=== PATIENT | female | born 1960 | race Caucasian/White ===

== ENCOUNTER 2018-09-02 17:22 | Inpatient (IN) | payer MEDICARE, OTHER ==
[~2018-09-02] VITALS: Ht 157.5 cm; Wt 76.7 kg
--- OUTSIDE RECORDS SUMMARY | ~2018-09-02 | XMS | Clinical Summary ---
Demographics + + + | Address | [address] | | | [place] [address] | + + + | Home Phone | | + + + | Preferred Language | Unknown | + + + | Marital Status | Single | + + + | Sabianist Affiliation | Unknown | + + + | Race | Unknown | + + + | Ethnic Group | Unknown | + + + Author + + + | Author | [facility] | | | and [place] | + + + | Organization | [facility] | | | and [place] | + + + | Address | Unknown | + + + | Phone | Unavailable | + + + Support + + +---------+ + | Name | Relationship | Address | Phone | + + +---------+ + | Anali Lane | ECON | Unknown | | + + +---------+ + | Patricio Foster | ECON | Unknown | | + + +---------+ + Care Team Providers + +------+ + | Care Greenhouse Specialist Name | Role | Phone | + +------+ + | Marcelo Francisco MD | PP | Unavailable | + +------+ + Allergies + + + + + + | Active Allergy | Reactions | Severity | Noted | Comments | | | | | Date | | + + + + + + | Hydrocodone | Itching | | 09/14/19 | | | | | | 15 | | + + + + + + Current Medications + + +-------+---------+------+------+-------+ | Prescription | Sig. | Disp. | Refills | Star | End | Statu | | | | | | t | Date | s | | | | | | Date | | | + + +-------+---------+------+------+-------+ | esomeprazole | Take 40 mg by mouth | | | | | Activ | | (NEXIUM) 40 mg | every morning | | | | | e | | capsule | (before breakfast). | | | | | | + + +-------+---------+------+------+-------+ | pravastatin | Take 40 mg by mouth | | | | | Activ | | (PRAVACHOL) 40 MG | nightly. | | | | | e | | tablet | | | | | | | + + +-------+---------+------+------+-------+ | rOPINIRole | Take 1 mg by mouth 4 | | | | | Activ | | (REQUIP) 1 mg tablet | times daily. | | | | | e | + + +-------+---------+------+------+-------+ | hydrOXYzine | Take 25 mg by mouth | | | | | Activ | | hydrochloride | 2 times daily. | | | | | e | | (ATARAX) 25 mg | | | | | | | | tablet | | | | | | | + + +-------+---------+------+------+-------+ | gabapentin | Take 300 mg by mouth | | | | | Activ | | (NEURONTIN) 300 mg | nightly. | | | | | e | | capsule | | | | | | | + + +-------+---------+------+------+-------+ | DULoxetine | Take 60 mg by mouth | | | | | Activ | | (CYMBALTA) 60 MG | Daily. | | | | | e | | capsule | | | | | | | + + +-------+---------+------+------+-------+ | ALPRAZolam (XANAX) | Take 1 mg by mouth 4 | | | | | Activ | | 1 MG tablet | times daily. | | | | | e | + + +-------+---------+------+------+-------+ | ciprofloxacin | Take 500 mg by mouth | | | | | Activ | | (CIPRO) 500 mg | 2 times daily. | | | | | e | | tablet | | | | | | | + + +-------+---------+------+------+-------+ | oxyCODONE 10 MG | Take 10 mg by mouth | | | | | Activ | | TABS | 2 times daily. | | | | | e | + + +-------+---------+------+------+-------+ Active Problems Not on file Social History + +-------+ +--------+------+ | Tobacco Use | Types | Packs/Day | Years | Date | | | | | Used | | + +-------+ +--------+------+ | Never Smoker | | | | | + +-------+ +--------+------+ + +---+---+---+ | Smokeless Tobacco: | | | | | Never Used | | | | + +---+---+---+ + + +---------+ + | Alcohol Use | Drinks/We | oz/Week | Comments | | | ek | | | + + +---------+ + | No | | | | + + +---------+ + + + + | Sex Assigned at | Date Recorded | | | | + + + | Not on file | | + + + Last Filed Vital Signs + + + + | Vital Sign | Reading | Time Taken | + + + + | Blood Pressure | 125/78 | 09/13/20141257 PDT | + + + + | Pulse | 100 | 09/13/20141257 PDT | + + + + | Temperature | 35.8 C (96.5 F) | 09/13/20141257 PDT | + + + + | Respiratory Rate | 16 | 09/13/20141257 PDT | + + + + | Oxygen Saturation | 99% | 09/13/20141257 PDT | + + + + | Inhaled Oxygen | - | - | | Concentration | | | + + + + | Weight | 76.7 kg (169 lb) | 09/13/20141257 PDT | + + + + | Height | 157.5 cm (5' 2.01") | 09/13/20141257 PDT | + + + + | Body Mass Index | 30.9 | 09/13/20141257 PDT | + + + + Plan of Treatment + + + + + | Health Maintenance | Due Date | Last Done | Comments | + + + + + | Vaccine: | | | | | Dtap/Tdap/Td (1 - | 1 | | | | Tdap) | | | | + + + + + | Cervical Cancer | | | | | Screening (Pap) | 2 | | | + + + + + | Vaccine: Zoster (1 | | | | | of 2) | 2 | | | + + + + + | Vaccine: Influenza | | | | | (Season Ended) | 9 | | | + + + + + Results Not on filefrom Last 3 Months Insurance + +--------+ +--------+ +---------+ | Payer | Benefi | Subscriber | Type | Phone | Address | | | t Plan | ID | | | | | | / | | | | | | | Group | | | | | + +--------+ +--------+ +---------+ | MEDICARE | MEDICA | [id number] | Medica | [phone] | | | RE | | re | [phone] | | | | PART A | | | | | | | AND B | | | | | + +--------+ +--------+ +---------+ | [place] | MEDICA | [id number] | Medica | [phone] | | | ID | | id | [phone] | | | | [place] | | | | | + +--------+ +--------+ +---------+ + +--------+ +--------+ + + | Guarantor Name | Accoun | Relation to | Date | Phone | Billing Address | | | t Type | Patient | of | | | | | | | | | | + +--------+ +--------+ + + | MARTHA COYNE | Person | Self | [birth year] Home: | [address] | | | [place] | | 1960 | [phone] | [place] | | | latasha | | | [phone] | [phone] | + +--------+ +--------+ + +
--- OUTSIDE RECORDS SUMMARY | ~2018-09-02 | XMS | Clinical Summary ---
Demographics + + + | Address | [address] | | | [place] [address] | + + + | Home Phone | | + + + | Preferred Language | Unknown | + + + | Marital Status | Single | + + + | Worship Affiliation | Unknown | + + + | Race | Unknown | + + + | Ethnic Group | Unknown | + + + Author + + + | Author | [facility] | | | and [place] | + + + | Organization | [facility] | | | and [place] | [...] Team Providers + +------+ + | Care Pediatric Cardiologist Name | Role | Phone | + [...] +--------+ +---------+ | MEDICARE | MEDICA | [id number] | Medica | [phone] | | | | RE | | re | [phone] | | | | PART A | | | | | | | AND B | | | | | + +--------+ +--------+ +---------+ | [place] | MEDICA | [id number] | Med[place] | [phone] | | [...] | Self | [birth year] | Home: | [address] | | | [place] | | 1960 | [phone] | [place] | | | latasha | | | [phone] | [phone] | + +--------+ +--------+ + +
--- OUTSIDE RECORDS SUMMARY | ~2018-09-02 | XMS | Clinical Summary ---
Demographics + + + | Address | [address] | | | [place] [address] | + + + | Home Phone | | + + + | Preferred Language | Unknown | + + + | Marital Status | Single | + + + | Baptist Affiliation | Unknown | + + + | Race | Unknown | + + + | Ethnic Group | Unknown | + + + Author + + + | Author | [facility] | | | and [place] | + + + | Organization | [facility] | | | and [place] [...] Team Providers + +------+ + | Care City Route Driver Name | Role | Phone | + [...] +--------+ +---------+ | MEDICARE | MEDICA | [id number] | Medica | [phone] | | | | RE | | re | [phone] | | | | PART A | | | | | | | AND B | | | | | + +--------+ +--------+ +---------+ | [place] | MEDICA | [id number] | [place] | [phone] | | [...] | Self | [birth year] | Home: | [address] | | | [address] | | 1960 | [phone] | [place] | | | [place] | | | [phone] | + +--------+ +--------+ + +
--- OUTSIDE RECORDS SUMMARY | ~2018-09-02 | XMS | Clinical Summary ---
Demographics + + + | Address | [address] | | | [place] [address] | + + + | Home Phone | | + + + | Preferred Language | Unknown | + + + | Marital Status | Single | + + + | Restorationist Affiliation | Unknown | + + + | Race | Unknown | + + + | Ethnic Group | Unknown | + + + Author + + + | Author | [facility] | | | and [place] | + + + | Organization | [facility] | | | and [place] [...] Team Providers + +------+ + | Care Box Toe Maker Name | Role | Phone | + [...] | + + + + + + Medications + + + +---------+------+------+-------+ | Medication | Sig | Dispensed | Refills | Star | End | Statu | | | | | | t | Date | s | | | | | | Date | | | + + + +---------+------+------+-------+ | esomeprazole | Take 40 mg by mouth | | 0 | | | Activ | | (NEXIUM) 40 mg | every morning | | | | | e | | capsule | (before breakfast). | | | | | | + + + +---------+------+------+-------+ | pravastatin | Take 40 mg by mouth | | 0 | | | Activ | | (PRAVACHOL) 40 MG | nightly. | | | | | e | | tablet | | | | | | | + + + +---------+------+------+-------+ | rOPINIRole | Take 1 mg by mouth 4 | | 0 | | | Activ | | (REQUIP) 1 mg tablet | times daily. | | | | | e | + + + +---------+------+------+-------+ | hydrOXYzine | Take 25 mg by mouth | | 0 | | | Activ | | hydrochloride | 2 times daily. | | | | | e | | (ATARAX) 25 mg | | | | | | | | tablet | | | | | | | + + + +---------+------+------+-------+ | gabapentin | Take 300 mg by mouth | | 0 | | | Activ | | (NEURONTIN) 300 mg | nightly. | | | | | e | | capsule | | | | | | | + + + +---------+------+------+-------+ | DULoxetine | Take 60 mg by mouth | | 0 | | | Activ | | (CYMBALTA) 60 MG | Daily. | | | | | e | | capsule | | | | | | | + + + +---------+------+------+-------+ | ALPRAZolam (XANAX) | Take 1 mg by mouth 4 | | 0 | | | Activ | | 1 MG tablet | times daily. | | | | | e | + + + +---------+------+------+-------+ | ciprofloxacin | Take 500 mg by mouth | | 0 | | | Activ | | (CIPRO) 500 mg | 2 times daily. | | | | | e | | tablet | | | | | | | + + + +---------+------+------+-------+ | oxyCODONE 10 MG | Take 10 mg by mouth | | 0 | | | Activ | | TABS | 2 times daily. | | | | | e | + + + +---------+------+------+-------+ Active Problems Not on file Social History [...] on file | | + + + + + + + | Job Start Date | Occupation | Industry | + + + + | Not on file | Not on file | Not on file | + + + + + + + + | Travel History | Travel Start | Travel End | + + + + + + | No recent travel history available. | + + Last Filed Vital Signs + [...] Last 3 Months Insurance + +--------+ +--------+ +---------+--------+ | Payer | Benefi | Subscriber | Effect | Phone | Address | Type | | | t Plan | ID | carly | | | | | | / | | Dates | | | | | | Group | | | | | | + +--------+ +--------+ +---------+--------+ | MEDICARE | MEDICA | [id number] | 07/29/19 | [phone] | | Medica | | | RE | | 09-Pre | 5 | | re | | | PART A | | sent | | | | | | AND B | | | | | | + +--------+ +--------+ +---------+--------+ | [place] | MEDICA | [id number] | | [phone] | | [place] | | | ID | | [phone]-Pr | 2 | | id | | | [place] | | esent | | | | + +--------+ +--------+ +---------+--------+ + +--------+ +--------+ + + | Guarantor Name | Accoun | Relation to | Date | Phone | Billing Address | | | t Type | Patient | of | | | | | | | | | | + +--------+ +--------+ + + | DorethaKeyonai May | Person | Self | [birth year] | [address] | | | [place] | | 1960 | [phone] | [place] | | | [place]asha | | | [phone] (Home) | [phone] | + +--------+ +--------+ + + Advance Directives Patient has advance care planning documents on file. For more information, please contact:[facility] [place] [address]
[~2018-09-02 17:22] MED LIST: ACYCLOVIR400 MG PO; ALBUTEROL2.5 MG/3 M INH; AUGMENTIN 875-1 EACH PO; CIPRO500 MG PO; CIPROFLOXACIN500 MG PO; CRUTCH1 EACH; CYMBALTA30 MG PO; GABAPENTIN100 MG PO; GABAPENTIN300 MG PO; GUAIFENESIN-CO118 ML PO; HYDROCODON-ACE1 EA14 PO; HYDROXYZINE HCL25 MG PO; IPRATROPIU0.2 MG/1 M INH; LEVAQUIN500 MG PO; LEXAPRO10 MG PO; LINZESS145 MCG PO; LINZESS290 MCG PO; METHOCARBAMOL500 MG PO; METRONIDAZOLE500 MG PO; NEXIUM20 MG PO; NEXIUM40 MG PO; NORCO 7.5-3251 EACH PO; OXYCODONE HCL10 MG PO; OXYCODONE HCL5 MG PO; OXYCODONE-ACET1 EAC3 PO; PERCOCET 10-321 EACH PO; PERCOCET 5-3251 EACH PO; PERCOCET 7.5-31 EACH PO; PRAVACHOL40 MG PO; PREDNISONE10 MG PO; PREMARIN0.3 MG PO; PROAIR HFA8.5 GM INH; ROPINIROLE HCL1 MG PO; SULFAMETHOXAZO1 EAC1 PO; SYMBICORT 16010.2 GM INH; TYLENOL EXTRA500 MG PO; XANAX1 MG PO; XOPENEX1.25 MG/3 INH
--- OUTSIDE RECORDS SUMMARY | 2018-09-02 17:24 | XMS ---
PreManage Notification: MELL SIDHU Security Finisher Screwdown Events No recent Security Events currently on file CRITERIA MET - DELVINP CARE PROVIDERS Cristino Barrera Primary Care Current PHONE: Unknown mai Case or Grain Mill Worker Current PHONE: Unknown Gregorio [place] Artem Current Orthopedic Surgery \T\ Fracture Clinic PHONE: Unknown Shabana has no Care Guidelines for this patient. E.D. VISIT COUNT (12 MO.) 1 YUDELKA [facility] TOTAL 1 NOTE: Visits indicate total known visits. ED/UCC VISIT TRACKING (12 MO.) 09/02/2018 17:22 [facility] [place] TYPE: Emergency COMPLAINT: - COUGH INPATIENT VISIT TRACKING (12 MO.) No inpatient visits to display in this time frame [email or web address]
--- NOTE | 2018-09-02 20:19 | NUR ---
PT ARRIVED VIA STRETCHER FROM ED ON 3LNC. SHE DENIES PAIN AND SOB AT THIS TIME. VS TAKEN AND PT IS ORIENTED TO THE ROOM.
--- NOTE | 2018-09-02 22:10 | NUR ---
IN ROOM ADMINISTERING MEDICATIONS AND ASSESSING PT. PT FINISHED SANDWICH BOX. SHE DENIES PAIN AND SOB. ENCOURAGED PT TO COUGH AND DEEP BREATH. SHE REPORT CLEAR SPUTUM. SHE DENIES FURTHER NEEDS AT THIS TIME. CPOX IS IN PLACE. CALL LIGHT IS WITHIN REACH.
--- NOTE | 2018-09-02 23:05 | NUR ---
WENT INTO PT'S ROOM AND CLEANED UP THE FLOOR WITH RED WIPES. SHE HAD ACCIDENTLY URINATED ON THE FLOOR. NEW GOWN GIVEN AND WIPES FOR CLEANING HER BODY. ATTENDS GIVEN ALSO. BEDSIDE TABLE AND CALL LIGHT IN REACH. PT NEEDS NOTHING MORE AT THIS TIME.
--- NOTE | 2018-09-02 23:33 | NUR ---
PT IS AWAKE IN BED, SHE DENIES NEEDS AT THIS TIME. CALL LIGHT IS WITHIN REACH.
--- NOTE | 2018-09-03 00:47 | NUR ---
PT IS AWAKE IN BED. SHE DENIES NEEDS AT THIS TIME. CALL LIGHT IS WITHIN REACH. SHE REMOVED HER 02 AND CPOX WAS 90%. PUT O2 BACK ON AT 2 LNC WHILE SLEEPING.
--- NOTE | 2018-09-03 01:22 | NUR ---
PT IS RESTING WITH EYES CLOSED, RR IS EVEN AND NONLABORED ON 2LNC AND CPOX. CALL LIGHT IS CLOSE.
--- NOTE | 2018-09-03 01:32 | NUR ---
VITALS AND I&OS DONE AND CHARTED. BEDSIDE TABLE AND CALL LIGHT IN REACH. PT NEEDS NOTHING AT THIS WHEN I ASKED HER.
--- NOTE | 2018-09-03 02:45 | NUR ---
PT IS RESTING WITH EYES CLOSED, RR IS EVEN AND NONLABORED. CALL LIGHT IS WITHIN REACH.
--- NOTE | 2018-09-03 03:48 | NUR ---
PT IS RESTING WITH EYES CLOSED, RESPIRATIONS ARE EVEN AND NONLABORED ON NC AND AT 93% ON CPOX. CALL LIGHT IS CLOSE.
--- NOTE | 2018-09-03 04:31 | NUR ---
REPLACED SENSOR FOR CPOX. PT IS HAVING A DIFFICULT TIME GETTIG COMFORTABLE TO SLEEP WELL. ADMINISTERED ZANAFLEX. SHE FLUCTUATES BETWEEN 93-96 % ON 3LNC. PT DENIES NEEDS AT THIS TIME. CALL LIGHT IS CLOSE. IV IS INFUSING FINE.
--- NOTE | 2018-09-03 06:15 | NUR ---
WOKE PT FOR VS AND I&O. SHE DENIES NEEDS AT THIS TIME. TURNED O2 DOWN TO 2 LNC AND SHE IS MAINTAINING IN THE 90'S. CALL LIGHT IS CLOSE.
--- NOTE | 2018-09-03 07:36 | NUR ---
PT SITTING UP IN BED, ALERT AND ORIENTED X3. PT DENIES SOB AND CHEST PAIN. PT IS ON 2L OXYGEN. PT DENIES PAIN AT THIS TIME. PERSONAL SUPPLIES AND CALL LIGHT WITHIN REACH. NO NEEDS AT THIS TIME.
[2018-09-03] MEDS ORDERED: GABAPENTIN300 MG PO (17:08)
[2018-09-03] MEDS ORDERED: TIZANIDINE HCL2 MG PO (17:10)
[2018-09-03] MEDS ORDERED: IBUPROFEN800 MG PO (17:12)
[2018-09-03] MEDS ORDERED: DULOXETINE HCL60 MG PO (17:43)
[2018-09-03] MEDS ORDERED: ANAFRANIL25 MG PO (17:44)
[2018-09-03] MEDS ORDERED: DULOXETINE HCL30 MG PO (17:44)
[2018-09-03] MEDS ORDERED: ZIPRASIDONE HCL60 MG PO (17:45)
--- NOTE | 2018-09-03 17:55 | NUR ---
Medications reconciled using pharmacy records, chart notes and patient interview. Discrepancies discovered, will message Dr Dominguez
--- NOTE | 2018-09-03 19:05 | NUR ---
ROUNDED CHARGE. PATIENT IS RESTING IN BED. PATIENT DENIES ANY COMMENTS, QUESTIONS OR CONCERNS. NO NEEDS NOTED. CALL LIGHT IN REACH.
--- NOTE | 2018-09-03 19:38 | NUR ---
SHIFT REPORT RECEIVED FROM PATRICIA DANIELLE AT BEDSIDE. PT AWAKE AND RESTING IN BED, RR WNL. PT VISITNG WITH . PT DENIES NEEDS AT THIS TIME. CALL LIGHT IN REACH. 1900 IV ABX INFUSING.
--- NOTE | 2018-09-03 20:13 | NUR ---
ASSESSMENT COMPLETE, SCHEDULED MEDICATIOSN GIVEN (SEE EMAR). PT DENIES PAIN, SOB, OR CHEST PAIN. IV SITE PATENT, BLOOD RETURN NOTED. RT IN ROOM FOR BREATHING TREATMENT. CPOX IN PLACE, O2 SAT AND HR WNL. 3LNC NOTED. PT DENIES FURTHER NEEDS, CALL LIGHT IN REACH. FRESH WATER AT BEDSIDE.
--- NOTE | 2018-09-03 21:10 | NUR ---
SCHEDULED IV VANCO INFUSING, SITE WNL. BLOOD RETURN NOTED. PT DENIES NEEDS, CALL LIGHT IN REACH. 3LNC NOTED.
--- NOTE | 2018-09-03 22:30 | NUR ---
DR HERNANDES NOTIFIED THAT PT'S SCHEDULED ANAFRANIL 25 MG PO IS NOT AVAILABLE IN HOUSE. NO NEW ORDERS, OKAY FOR PT'S FAMILY TO BRING IN MEDICATION FROM HOME AND CAN BE RESUMED TOMORROW NIGHT PER DR HERNANDES.
--- NOTE | 2018-09-04 00:36 | NUR ---
PT RESTING IN BED, EYES CLOSED, RR WNL. NO DISTRESS NOTED. 3LNC IN PLACE, CPOX NOTED. O2 SAT 96%, HR 74. IV FLUIDS INFUSING, SITE WNL. CALL LIGHT IN REACH.
--- NOTE | 2018-09-04 04:49 | NUR ---
ASSESSMENT COMPLETE. NO NEW CONCERNS. PT A/O, INCONTINENT DUE TO SLEEPING DEEPLY. BED CHANGE COMPLETE. NEW ATTENDS IN PLACE. 675 UO ALSO NOTED. PT DENIES PAIN, CPOX IN PLACE WITH 2LNC IN PLACE. LUNG SOUNDS COURSE WITH WHEZZES SCATTERED, PT DENIES SOB. PT NOW IN BED, DENIED FURTHER NEEDS. VERY COMPLIANT AND PLEASANT AT THIS TIME. CALL LIGHT IN REACH. ROOM TIDIED.
--- NOTE | 2018-09-04 05:00 | NUR ---
VITALS AND I&OS DONE AND CHARTED. SODA GIVEN PER REQUEST OF PT. BEDSIDE TABLE AND CALL LIGHT IN REACH. PT NEEDS NOTHING MORE AT THIS TIME.
--- NOTE | 2018-09-04 05:10 | NUR ---
PT SLEPT FOR MOST OF THE NIGHT. 2LNC IN PLACE, WITH CPOX. VSS. PT A/O, DENIED PAIN ALL SHIFT. SBA WITH AMBULATION, FOLLOWS COMMANDS APPROPERIATELY. LR AT 50 MLS/HR, IV SITE WNL. SCHEDULED IV ABX. REGULAR DIET, TOLERATING WELL, NO NAUSEA. PT VOIDING QS.
--- NOTE | 2018-09-04 07:05 | NUR ---
BEDSIDE REPORT.. PT RESTING IN BED EYES CLOSED RR 20BPM DISTRESS NOTED. 98% OXYGEN SATURATION ON 2L N.C.
--- NOTE | 2018-09-04 08:17 | NUR ---
PATIENT SITTING UP IN BED, REFUSED TO GET INTO CHAIR AT THIS TIME. CALL LIGHT IN REACH. NO FURTHER NEEDS AT THIS TIME. WARM WSAHCLOTH GIVEN.
--- NOTE | 2018-09-04 08:53 | NUR ---
PT SITTING UP IN BED COMPLETED 100% OF BREAKFAST, PT REPORTS NO PAIN, SHE IS HAVING NEB TX AT THIS TIME. AM MED PASS COMPLETE. ASSESSMENT COMPLETE
--- NOTE | 2018-09-04 09:27 | NUR ---
PATIENT IN BED RESTING. FRESH WATER GIVEN. NO VOID AND PATIENT COMPLAINING OF HEADACH, RN NOTIFIED. CALL LIGHT IN REACH. NO FURTHER NEEDS AT THIS TIME.
--- NOTE | 2018-09-04 10:13 | NUR ---
PT REPORTS HEADACHE 4/10 TYLENOL GIVEN AT THIS TIME PT TITRATED TO 1.5L OXYGEN 91% OXYGEN SATURATION AT THIS TIME PER CPOX.
--- NOTE | 2018-09-04 12:39 | NUR ---
IN TALKING WITH THE PT, SHE STATES SHE HAS TROUBLE GETTING TRANSPORTATION TO TAKE HER TO HER DR [facility], "THEY WON'T PAY [facility] I LIVE IN [place] AND THEY DON'T COME OUT THERE." I CHECKED WITH [facility] AND SHE SAYS THEY WILL TRANSPORT OUT THERE. SHE STATES IT MAY HAVE TO DO WITH HER INSURANCE ETC. KAVITA STATES SHE WILL HELP HER AND SEE IF SHE CAN'T GET TRANSPORTATION ARRANGED FOR HER. REFERRAL MADE FOR [facility], INFORMED PT OF THIS OPPORTUNITY. PT ABLE TO DISCUSS, DX, MEDS ETC WITH ME.
--- NOTE | 2018-09-04 12:53 | NUR ---
PT ON ROOM AIR TRIAL AT THIS TIME, 98% ON 1L N.C. WHEN TURNED OFF. PT IS SLEEPING AT THIS TIME.
--- NOTE | 2018-09-04 15:10 | NUR ---
PT SLEEPING IN BED ALERT TO NAME DISCUSSED WITH PT AMBUALTING IN HALLS PT AGREEABLE TO THIS.
--- NOTE | 2018-09-04 16:21 | NUR ---
PT AMBUALTED TWO LAPS IN THE HALLS ON ROOM AIR AND MAINTAINED 93-94% OXYGEN SATURATION.
--- NOTE | 2018-09-04 17:37 | NUR ---
PT HAS BEEN ON ROOM AIR THIS AFTERNOON, AMBULATED TWO LAPS ON M/S UNIT ON ROOM AIR AND MAINTAINED 93-94% OXYGEN SATURATION. SHE HAS BEEN PLEASANT, TOOK ONE 1.5 HOUR NAP THIS AFTERNOON. SHE HAS BEEN ALERT AND ORIENTED THE REST OF SHIFT. PLAN TO DISCHARGE TOMORROW.
--- NOTE | 2018-09-04 19:00 | NUR ---
SHIFT REPORT RECEIVED FROM PATRICIA BRADSHAW AT BEDSIDE. IV VANCO INFUSING, SITE WNL. PT AWAKE, A/O, AND DENIES NEEDS. PT VERY FRIENDLY AND IN GOOD SPIRITS. CALL LIGHT IN REACH.
--- NOTE | 2018-09-04 20:20 | NUR ---
ASSESSMENT COMPLETE, SCHEDULED MEDICATIONS GIVEN (SEE EMAR). PRN ZANAFLEX ALSO GIVEN PER PT REQUEST. PT A/OX4, DENIES PAIN. CPOX IN PLACE, PT ON RA. O2 SAT 99%, HR 76. AUDIBLE WHEEZES NOTED, PT REPORTS VERY MINIMAL SOB. FOLLOWING ASSESSMENT PT STATED, "I FEEL BETTER, I DON'T NEED ANYTHING FOR IT". IV ABX INFUSING, SITE WNL. PT DENIES PAIN. RECENTLY UP TO VOID, NOW BACK IN BED AND PREPARING FOR BED. LENNOX MACEDO IN ROOM FOR VS. CALL LIGHT IN REACH.
--- NOTE | 2018-09-04 21:09 | NUR ---
SCHEDILED IV ABX INFUSING, SITE WNL WITH NOTED BLOOD RETURN. PT DENIES ADDITIONAL NEEDS, CALL LIGHT IN REACH.
--- NOTE | 2018-09-04 23:05 | NUR ---
PT RESTING IN BED, CPOX IN PLACE. PT ON RA, O2 SAT IN MID 90'S, HR WNL. NO DISTRESS NOTED, PT ALLOWED TO REST. PT SALINE LOCKED. CALL LIGHT IN REACH.
--- NOTE | 2018-09-05 00:16 | NUR ---
V/S AND I7O DONE AND CHARTED.
--- NOTE | 2018-09-05 00:43 | NUR ---
PT RESTING IN BED, EYES CLOSED, RR WNL. PT APPEARS COMFORTABLE. PT ON RA, CPOX IN PLACE, O2 SAT IN MID 90'S, HR WNL. CALL LIGHT IN REACH.
--- NOTE | 2018-09-05 01:30 | NUR ---
ASSESSMENT COMPLETE, NO NEW CONCERNS. VSS, PT DENIES PAIN. CPOX ALARM GOING OFF, PT ON RA. O2 SAT IN UPPER 80'S. NEW O2 SAT PROBE IN PLACE, O2 SAT MAINTAINING IN MID 90'S. PT DENIES SOB OR DYSPNEA. PT DROWSY FROM SLEEP, BUT AROUSABLE. FOLLOWS COMMANDS APPROPERIATELY. DENIES FURTHER NEEDS, CALL LIGHT IN REACH.
--- NOTE | 2018-09-05 02:07 | NUR ---
SCHEDULED IV VANCO INFUSING PER MD ORDERS, SITE WNL. BLOOD RETURN NOTED. PT DENIES NEEDS, CALL LIGHT IN REACH.
--- NOTE | 2018-09-05 04:06 | NUR ---
PT RESTING IN BED, EYES CLOSED, RR WNL. CPOX IN PLACE, PT ON RA. O2 SAT LOW TO MID 90'S, HR 80. CALL LIGHT IN REACH.
--- NOTE | 2018-09-05 05:11 | NUR ---
PT HAD UNEVENTFUL NIGHT, SLEPT ON AND OFF THIS SHIFT. VSS, PT ON RA WITH CPOX. PT DESATED ONCE TO UPPER 80'S, NEW O2 PROBE IN PLACE, RESOLVED SPONTANEOUSLY. SCHEDULED BREATHING TREAMENTS. IV ABX, IV SITE WNL. REGULAR DIET, TOLERATING WELL, NO NAUSEA THIS SHIFT. PT USES CALL LIGHT APPROPERIATELY.
--- NOTE | 2018-09-05 07:30 | NUR ---
REPORT RECEIVED FROM ALMAZ URIARTE. PT LAYING IN BED. STATES THAT SHE DID NOT SLEEP WELL LAST NIGHT AND IS TIRED.
--- NOTE | 2018-09-05 09:31 | NUR ---
pt sitting up at bedside talking on phone. am med pass complete
--- NOTE | 2018-09-05 09:48 | NUR ---
PATIENT USING BATHROOM. PATIENT BACKS TO BED. VITAL SIGNS AND I&O DONE. SODA GIVEN. CALL LIGHT WITHIN REACH. PATIENT REFUSED TO TAKE A SHOWER BECAUSE SHE IS THINKING THAT MAYBE SHE IS GOING HOME TODAY AND SHE PREFERS TO TAKE A SHOWER AT HOME.
[2018-09-05] MEDS ORDERED: CEFPODOXIME PR200 MG PO (11:04)
[2018-09-05] MEDS ORDERED: DOXYCYCLINE HY100 MG PO (11:05)
[2018-09-05] MEDS ORDERED: COMBIVENT RESPIM4 GM INH (11:06)
[2018-09-05] MEDS ORDERED: DOXYCYCLINE MO100 M1 PO (11:08)
--- NOTE | 2018-09-05 11:22 | NUR ---
PT IV INFILTRATED, DR HERNANDES GAVE OK TO LEAVE OUT AND NOT GIVE THE VANCO SHE IS BEING DISHCARGED.
--- NOTE | 2018-09-05 11:24 | NUR ---
PATIENT SITTING UP ON THE EDGE OF THE BED. PATIENT IS DRESS. FINAL VITAL SIGNS WERE OBTAINED PRIOR TO DISCHARGE FROM THE UNIT
== END 2018-09-05 12:03 | disposition home or self-care (01) | DRG 193 ==
LOC: ED 17:22 → MS 17:23 → ED 17:23 → MS 17:23
PROVIDERS: ADMIT Internal Medicine
DX: J13 Pneumonia due to Streptococcus pneumoniae (principal); J96.01 Acute respiratory failure with hypoxia; F13.20 Sedative, hypnotic or anxiolytic dependence, uncomplicated; J18.8 Other pneumonia, unspecified organism; F31.9 Bipolar disorder, unspecified; F41.9 Anxiety disorder, unspecified; G25.81 Restless legs syndrome; K21.9 Gastro-esophageal reflux disease without esophagitis; G89.4 Chronic pain syndrome; T14.90XS Injury, unspecified, sequela; Z79.899 Other long term (current) drug therapy; Z88.5 Allergy status to narcotic agent
CPT/HCPCS: 36415; 71046; 80048; 80053; 80202; 83880; 85025; 94640; 94667; 94668; 94762; 96365; 96375; 99285-25; J0456; J0696; J1650; J2930; J3370; J7060; J7120

== ENCOUNTER 2018-09-10 18:05 | Emergency (ER) | payer MEDICARE, OTHER ==
[~2018-09-10] VITALS: Ht 157.5 cm; Wt 76.7 kg
[~2018-09-10 18:05] MED LIST changes: +ANAFRANIL25 MG PO; +CEFPODOXIME PR200 MG PO; +COMBIVENT RESPIM4 GM INH; +DOXYCYCLINE HY100 MG PO; +DOXYCYCLINE MO100 M1 PO; +DULOXETINE HCL30 MG PO; +DULOXETINE HCL60 MG PO; +IBUPROFEN800 MG PO; +TIZANIDINE HCL2 MG PO; +ZIPRASIDONE HCL60 MG PO
--- OUTSIDE RECORDS SUMMARY | 2018-09-10 18:08 | XMS ---
PreManage Notification: MELL SIDHU Security Healthcare Representative Events No recent Security Events currently on file CRITERIA MET - [facility] [place] - [facility] - [facility]its in 30 Days [facility] MERLYN Chan PHONE: Unknown Cristino Barrera Primary Care Current PHONE: Unknown mai Case or Occupational Physician Current PHONE: Unknown Gregorio Mcgill Current Orthopedic Surgery \T\ [facility] PHONE: Unknown Shabana has no Care Guidelines for this patient. Ace VISIT COUNT (12 MO.) 2 YUDELKA Bonilla TOTAL 2 NOTE: Visits indicate total known visits. ED/UCC VISIT TRACKING (12 MO.) 09/10/2018 18:06 YUDELKA [facility] [place] TYPE: Emergency COMPLAINT: - SOB,COUGH 09/02/2018 17:22 Y[facility] [place] TYPE: Emergency COMPLAINT: - PNEUMONIA INPATIENT VISIT TRACKING (12 MO.) 09/02/2018 20:34 YUDELKA [facility] [place] TYPE: Medical Surgical COMPLAINT: - BILATERAL LOWER LOBE PNEUMONIA DIAGNOSES: - Restless legs syndrome - Bipolar disorder, unspecified - Other pneumonia, unspecified organism - Restless legs syndrome - Pneumonia due to Streptococcus pneumoniae - Bipolar disorder, unspecified - Sedative, hypnotic or anxiolytic dependence, uncomplicated - Allergy status to narcotic agent status - Anxiety disorder, unspecified - Other fpc (current) drug therapy - Other pneumonia, unspecified organism - Chronic pain syndrome - Anxiety disorder, unspecified - Injury, unspecified, sequela - Injury, unspecified, sequela - Gastro-esophageal reflux disease without esophagitis - Gastro-esophageal reflux disease without esophagitis - Allergy status to narcotic agent status - Acute respiratory failure with hypoxia - Chronic pain syndrome - Other terminal manager (current) drug therapy - Sedative, hypnotic or anxiolytic dependence, uncomplicated - Pneumonia, unspecified organism - Acute respiratory failure with hypoxia - Pneumonia due to Streptococcus pneumoniae [email or web address]
[2018-09-10] MEDS ORDERED: DOXYCYCLINE HY100 MG PO (18:25)
[2018-09-10] MEDS ORDERED: TESSALON PERLE100 MG PO (19:24)
[2018-09-10] MEDS ORDERED: PREDNISONE20 MG PO (19:24)
--- NOTE | 2018-09-12 16:53 | EKG ---
[facility] [address] [place], [place] [address] Signed Normal sinus rhythm Prolonged QT Abnormal ECG No previous ECGs available Confirmed by CHERELLE BERGERON DO ([id number]) on 09/12/2018 4:53:49 PM Electronically Signed By: CHERELLE BERGERON DO 09/12/18 1653 PATIENT NAME: MELL SIDHU MERVAT Electrocardiogram DATE OF : 64 PHYSICIAN: CHERELLE BERGERON DO REPORT #: [id number] REPORT IS CONFIDENTIAL AND NOT TO BE RELEASED WITHOUT AUTHORIZATION
== END 2018-09-10 19:43 | disposition home or self-care (01) ==
LOC: ED 18:05
DX: J40 Bronchitis, not specified as acute or chronic (principal); F31.9 Bipolar disorder, unspecified; E78.00 Pure hypercholesterolemia, unspecified; Z88.5 Allergy status to narcotic agent; Z79.899 Other long term (current) drug therapy
CPT/HCPCS: 71046; 80048; 84484; 85025; 94640; 99284-25; J1100

== ENCOUNTER 2022-06-20 16:06 | Emergency (ER) | payer MEDICARE, OTHER ==
[~2022-06-20] VITALS: Ht 157.5 cm; Wt 63.5 kg
[~2022-06-20 16:06] MED LIST changes: +PREDNISONE20 MG PO; +TESSALON PERLE100 MG PO
--- OUTSIDE RECORDS SUMMARY | 2022-06-20 16:08 | XMS ---
PreManage Notification: MELL SIDHU Security Head Of Strategy Events No recent Security Events currently on file CRITERIA MET - [place] CARE PROVIDERS [facility] Current PHONE: [phone] ALVERT[facility] 09/04/2018-Marcela Chan PHONE: [phone] Shabana has no Care Guidelines for this patient. ERigo VISIT COUNT (12 MO.) Jevon Bonilla TOTAL 1 NOTE: Visits indicate total known visits. ED/UCC VISIT TRACKING (12 MO.) 06/20/2022 16:07 YUDELKA [facility] [place] TYPE: Emergency COMPLAINT: - L PALM LACERATION INPATIENT VISIT TRACKING (12 MO.) No inpatient visits to display in this time frame [email or web address]
[2022-06-20] MEDS ORDERED: BUPROPION XL150 MG PO (16:22)
[2022-06-20] MEDS ORDERED: HYDROXYZINE HCL25 MG PO (16:23)
== END 2022-06-20 18:44 | disposition home or self-care (01) ==
LOC: ED 16:06
DX: S61.412A Laceration without foreign body of left hand, initial encounter (principal); W26.8XXA Contact with other sharp object(s), not elsewhere classified, initial encounter; Z88.5 Allergy status to narcotic agent; Z79.899 Other long term (current) drug therapy
CPT/HCPCS: 99282